=== PATIENT | male | born 1985 | race Caucasian/White ===

== ENCOUNTER 2022-05-18 14:38 | Emergency (ER) | payer MEDICAID, MEDICARE ==
[2022-05-18] MEDS ORDERED: Sodium Chloride 0.9% 10 ML Syringe FLUSH PRN (15:19)
[2022-05-18] MEDS ORDERED: Ondansetron 4 MG/2 ML SDV IVPUSH ONE (15:21)
[2022-05-18] MEDS ORDERED: Sodium Chloride 0.9% 1,000 ML IV SCH (15:30)
[2022-05-18 15:48] LABS: ESTIMATED GFR 89 mL/min (>60)
== END 2022-05-18 17:25 | disposition home or self-care (01) ==
LOC: FB.ED 14:38
DX: N39.0 Urinary tract infection, site not specified (principal); E87.6 Hypokalemia; Z91.010 Allergy to peanuts; Z88.2 Allergy status to sulfonamides; Z79.899 Other long term (current) drug therapy
CPT/HCPCS: 36415; 74176; 80053; 81001; 82150; 83690; 84443; 85025; 87086; 96361; 96374; 99285; J2405; J7030